=== PATIENT | female | born 1965 | race African-American/Black ===

== ENCOUNTER 2020-12-27 09:58 | Emergency (ER) | payer SELFPAY ==
[~2020-12-27] VITALS: Ht 167.6 cm; Wt 80.0 kg
[2020-12-27] MEDS ORDERED: ACETAMINOPHEN 325MG TABLET PO ONE (10:30)
[2020-12-27] MEDS ORDERED: IBUPROFEN 600MG TABLET PO ONE (10:30)
[2020-12-27] MEDS ORDERED: TOPUD MT (11:33)
[2020-12-27 11:42] VITALS: BP 171/101
== END 2020-12-27 11:45 | disposition left against medical advice (07) ==
LOC: ER 09:58
DX: M79.642 Pain in left hand (principal); M25.522 Pain in left elbow; I10 Essential (primary) hypertension; V49.49XA Driver injured in collision with other motor vehicles in traffic accident, initial encounter; Y93.89 Activity, other specified; Y92.89 Other specified places as the place of occurrence of the external cause; Y99.8 Other external cause status
CPT/HCPCS: 99283